=== PATIENT | female | born 1995 | race African-American/Black ===

== ENCOUNTER 2021-12-19 17:30 | Emergency (ER) | payer OTHER ==
[2021-12-19 17:57] VITALS: BP 127/78; PULSE 78; TEMP 100.1; BMI 25.7
[2021-12-19] MEDS ORDERED: ACETAMINOPHEN 1000 MG/100 ML BAG IVPB ONE (18:25)
[2021-12-19] MEDS ORDERED: SODIUM CHLORIDE 0.9% 1000 ML INFUS.BAG IV ONE (18:25)
[2021-12-19] MEDS ORDERED: ACETAMINOPHEN INJECTION 100 ML IVPB ONE (18:38)
== END 2021-12-19 22:57 | disposition home or self-care (01) ==
LOC: FER 17:30
PROC: 3E033GC Introduction of Other Therapeutic Substance into Peripheral Vein, Percutaneous Approach (ICD-10-PCS; principal; 2021-12-19)
DX: R10.30 Lower abdominal pain, unspecified (principal)
CPT/HCPCS: 74177-TC; 76856-TC; 81003; 81025; 87086; 99285-25; Q9967